=== PATIENT | male | born 1985 | race Caucasian/White ===

== ENCOUNTER 2018-04-16 03:08 | Emergency (ER) | payer OTHER ==
[2018-04-16 03:31] VITALS: BP 121/74; PULSE 114; RESP 18; TEMP 98
[2018-04-16] MEDS ORDERED: CEPHALEXIN 500MG STARTER PACK 4 CAP BTL PO STA (03:43)
[2018-04-16] MEDS ORDERED: SULFAMETH-TMP DS STARTER PACK 2 TAB BTL PO STA (03:43)
--- NOTE | 2018-04-16 03:45 | ED ---
Skin/Abscess/FB HPI - General Chief complaint: Skin/Abscess/Foreign Body Stated complaint: FACIAL SWELLING Time Seen by Provider: 04/16/18 03:36 Source: patient Mode of arrival: ambulatory Limitations: no limitations - History of Present Illness Initial comments: 32-year-old male patient presents to the emergency department today for evaluation of possible infection to his face. Patient does admit to using injectable drugs. He states that he is withdrawing this causes him to break out. Patient states a few the areas seem to be getting infected. States they have been draining pus. States they're painful to touch. He denies any fevers or chills with this. Denies any nausea or vomiting. States he is currently homeless and has no place to go. Patient denies any recent shortness breath, chest pain, abdominal pain, nausea, vomiting, diarrhea, constipation, back pain , numbness, tingling, dizziness, weakness, hematuria, dysuria, urinary urgency, urinary frequency, headache, visual changes, or any other complaints. - Related Data Previous Rx's Medication Instructions Recorded Cephalexin [Keflex] 500 mg PO Q6H #40 cap 04/16/18 Sulfamethoxazole/Trimethoprim 1 each PO BID #20 tablet 04/16/18 [Bactrim DS 800-160 mg] Allergies Allergy/AdvReac Type Severity Reaction Status Date / Time No Known Allergies Allergy Verified 04/16/18 03:44 Review of Systems ROS Statement: Those systems with pertinent positive or pertinent negative responses have been documented in the HPI. ROS Other: All systems not noted in ROS Statement are negative. Past Medical History Past Medical History: Hyperlipidemia, Hypertension History of Any Multi-Drug Resistant Organisms: None Reported Additional Past Surgical History / Comment(s): lasix Past Psychological History: Anxiety, Depression, PTSD Smoking Status: Current every day smoker Past Alcohol Use History: None Reported Past Drug Use History: None Reported General Exam Limitations: no limitations General appearance: alert, in no apparent distress, other (Physical well- developed, well-nourished adult male patient in no acute distress. Vital signs upon presentation are temperature 98.2F, pulse 114, respirations 18, blood pressure 121/74, pulse ox 98% on room air.) Eye exam: Present: normal appearance, PERRL, EOMI. Absent: scleral icterus, conjunctival injection, periorbital swelling Respiratory exam: Present: normal lung sounds bilaterally. Absent: respiratory distress, wheezes, rales, rhonchi, stridor Cardiovascular Exam: Present: regular rate, normal rhythm, normal heart sounds. Absent: systolic murmur, diastolic murmur, rubs, gallop, clicks GI/Abdominal exam: Present: soft, normal bowel sounds. Absent: distended, tenderness, guarding, rebound, rigid Neurological exam: Present: alert, oriented X3, CN II-XII intact Psychiatric exam: Present: normal affect, normal mood, anxious Skin exam: Present: warm, dry, intact, normal color, other (Patient has acne to the face, there are 2-3 lesions to the neck that are swollen, erythematous. They're not fluctuant no evidence of drainable abscess. No current drainage of pus. Minimal surrounding cellulitis.). Absent: rash Course Vital Signs 04/16/18 03:25 Temperature 98.0 F Pulse Rate 114 H Respiratory 18 Rate Blood Pressure 121/74 O2 Sat by Pulse 98 Oximetry Medical Decision Making - Medical Decision Making 32-year-old male patient with past medical history significant for IVDA presents to the emergency department today with complaints of infection to his face. Physical examination did reveal evidence of acne with 3 large lesions to the neck that do appear to have some mild surrounding cellulitis. No fluctuance or evidence of drainable abscess. Patient is afebrile. Is able to tolerate food and fluid intake. He will be started on antibiotics and discharged home. He does have plan for rehab facility placement in the short future. Return parameters were discussed in detail. He is instructed to follow -up with his primary care physician for recheck in 1-2 days. He verbalizes understanding and agrees with this plan. Disposition Clinical Impression: Facial abscess Disposition: HOME SELF-CARE Condition: Good Instructions (If sedation given, give patient instructions): Abscess (ED) Additional Instructions: Apply warm compresses over the lesions. Complete antibiotic prescriptions in full. Return to the emergency department immediately for any new, worsening, or concerning symptoms. Prescriptions: Cephalexin [Keflex] 500 mg PO Q6H #40 cap Sulfamethoxazole/Trimethoprim [Bactrim DS 800-160 mg] 1 each PO BID #20 tablet Is patient prescribed a controlled substance at d/c from ED?: No Referrals: Kristofer Irby DO [Primary Care Provider] - 1-2 days Time of Disposition: 03:45
== END 2018-04-16 04:00 | disposition home or self-care (01) ==
LOC: EEVIPCON 03:08 → EC 03:08
DX: L02.01 Cutaneous abscess of face (principal); L03.211 Cellulitis of face; F17.200 Nicotine dependence, unspecified, uncomplicated; Z59.0 Homelessness
CPT/HCPCS: 99283

== ENCOUNTER 2018-07-15 08:20 | Emergency (ER) | payer OTHER ==
[2018-07-15 08:33] VITALS: BP 135/77; PULSE 103; RESP 18; TEMP 98.3
--- NOTE | 2018-07-15 08:46 | ED ---
Psych HPI - General Chief Complaint: Psychiatric Symptoms Stated Complaint: pickup order Time Seen by Provider: 07/15/18 08:33 Source: patient, RN notes reviewed Mode of arrival: ambulatory Limitations: no limitations - History of Present Illness Initial Comments: This a 32-year-old male presents emergency Department with police for a pickup order. Patient states he is supposed to see [facility]. His been not showing up to his appointments because he states that he was told he was not her receive medications. 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 Patient states that he does not to the [place] at this time. Patient states he is not suicidal or homicidal. Patient does admit that he is very anxious, stressed out and is requesting benzodiazepines. Patient also complains that he has injections on his skin. 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 Patient states she's had no break of areas over the last few days. - Related Data Home Medications Medication Instructions Recorded Confirmed Acetaminophen Tab [Tylenol Tab] 650 mg PO Q4H PRN 07/15/18 07/15/18 Acetaminophen [Tylenol] 500 mg PO BID PRN 07/15/18 07/15/18 Atomoxetine HCl [Strattera] 60 mg PO DAILY 07/15/18 07/15/18 Atorvastatin [Lipitor] 40 mg PO HS 07/15/18 07/15/18 DULoxetine HCL [Cymbalta] 60 mg PO DAILY 07/15/18 07/15/18 Esomeprazole Magnesium [NexIUM] 40 mg PO DAILY 07/15/18 07/15/18 Eszopiclone 3 mg PO HS 07/15/18 07/15/18 Fluticasone Nasal [place] [Flonase 2 spr EA NOSTRIL DAILY 07/15/18 07/15/18 Nasal [place]] Hydrochlorothiazide [Hydrodiuril] 12.5 mg PO DAILY 07/15/18 07/15/18 Ibuprofen [Motrin] 800 mg PO TID PRN 07/15/18 07/15/18 Lidocaine 5% Patch [Lidoderm 5% 1 patch TOPICAL DAILY 07/15/18 07/15/18 Patch] Valproic Acid 500 mg PO TID 07/15/18 07/15/18 buPROPion HCL [Wellbutrin SR] 200 mg PO BID 07/15/18 07/15/18 hydrALAZINE HCL [Apresoline] 50 mg PO TID PRN 07/15/18 07/15/18 traZODone HCL [Desyrel] 100 mg PO HS 07/15/18 07/15/18 Allergies Allergy/AdvReac Type Severity Reaction Status Date / Time melatonin Allergy Rash/Hives Verified 07/15/18 09:29 Review of Systems ROS Statement: Those systems with pertinent positive or pertinent negative responses have been documented in the HPI. ROS Other: All systems not noted in ROS Statement are negative. Past Medical History Past Medical History: Hyperlipidemia, Hypertension History of Any Multi-Drug Resistant Organisms: MRSA Additional Past Surgical History / Comment(s): lasix Past Psychological History: Anxiety, Depression, PTSD Smoking Status: Current every day smoker Past Alcohol Use History: None Reported Past Drug Use History: None Reported General Exam Limitations: no limitations General appearance: alert, in no apparent distress Head exam: Present: atraumatic, normocephalic, normal inspection Eye exam: Present: normal appearance, PERRL, EOMI. Absent: scleral icterus, conjunctival injection, periorbital swelling ENT exam: Present: normal exam, normal oropharynx, mucous membranes moist, TM's normal bilaterally, normal external ear exam Neck exam: Present: normal inspection, full ROM. Absent: tenderness, meningismus, lymphadenopathy Respiratory exam: Present: normal lung sounds bilaterally. Absent: respiratory distress, wheezes, rales, rhonchi, stridor Cardiovascular Exam: Present: regular rate, normal rhythm, normal heart sounds. Absent: systolic murmur, diastolic murmur, rubs, gallop, clicks GI/Abdominal exam: Present: soft, normal bowel sounds. Absent: distended, tenderness, guarding, rebound, rigid Neurological exam: Present: alert, oriented X3, CN II-XII intact, reflexes normal. Absent: motor sensory deficit Psychiatric exam: Present: agitated, anxious Skin exam: Present: warm, dry, intact, normal color, other (Multiple areas of folliculitis and abscesses noted). Absent: rash Course Vital Signs 07/15/18 08:28 Temperature 98.3 F Pulse Rate 103 H Respiratory 18 Rate Blood Pressure 135/77 O2 Sat by Pulse 99 Oximetry Medical Decision Making - Medical Decision Making Patient became very vigilant, aggressive and loud yelling at staff. Patient ran out of his room through staff who unable to stop the patient. Patient eloped from the hospital at this time police were contacted. Disposition Clinical Impression: Drug abuse, PTSD (post-traumatic stress disorder), Ivett (monopolar) single episode or unspecified Disposition: Left Against Medical Advice Referrals: Kristofer Irby DO [Primary Care Provider] - 1-2 days
[2018-07-15] MEDS ORDERED: LORazepam 1 MG TAB PO STA (11:16)
[2018-07-15] MEDS ORDERED: DIAZEPAM 5 MG TAB PO STA ×2 (12:00→13:41)
[2018-07-15] MEDS ORDERED: LORazepam 2 MG/ML INJ IM STA (13:50)
[2018-07-15] MEDS ORDERED: ZIPRASIDONE 20 MG VIAL IM STA (13:50)
== END 2018-07-15 14:00 | disposition left against medical advice (07) ==
LOC: EC 08:20
DX: F43.10 Post-traumatic stress disorder, unspecified (principal); F19.10 Other psychoactive substance abuse, uncomplicated; F32.9 Major depressive disorder, single episode, unspecified; R45.1 Restlessness and agitation; L73.9 Follicular disorder, unspecified; L02.91 Cutaneous abscess, unspecified; F41.9 Anxiety disorder, unspecified; E78.5 Hyperlipidemia, unspecified; I10 Essential (primary) hypertension; F17.200 Nicotine dependence, unspecified, uncomplicated; Z88.8 Allergy status to other drugs, medicaments and biological substances; Z79.51 Long term (current) use of inhaled steroids; Z79.899 Other long term (current) drug therapy; Z86.14 Personal history of Methicillin resistant Staphylococcus aureus infection
CPT/HCPCS: 82075; 99284

== ENCOUNTER 2018-07-15 19:21 | Inpatient (IN) | payer OTHER ==
[2018-07-15] MEDS ORDERED: LORazepam 2 MG/ML INJ IM STA (19:25)
--- NOTE | 2018-07-15 19:33 | ED ---
General Adult HPI <Mora Mckeon P - Last Filed: 07/16/18 04:38> - General Source: patient, police, RN notes reviewed, old records reviewed <Isma Scott - Last Filed: 07/16/18 18:25> - General Stated complaint: Mental Health Time Seen by Provider: 07/15/18 19:25 - History of Present Illness Initial comments: 32-year-old male presents for psychiatric evaluation. Patient was seen in the emergency department earlier today. He did elope and ER staff was unable to restrain the patient. Police were contacted and have been looking for the patient since the time he left the emergency department. He was found by police and brought in for further evaluation. Patient had "ordered psychiatric evaluation and admission. He is aggressive and required both chemical and physical restraints. Patient has no physical complaints no chest pain or dyspnea. No fever or chills. No abdominal pain nausea vomiting. He states he is hungry. (Isma Scott) - Related Data Home Medications Medication Instructions Recorded Confirmed Acetaminophen Tab [Tylenol Tab] 650 mg PO Q4H PRN 07/15/18 07/15/18 Acetaminophen [Tylenol] 500 mg PO BID PRN 07/15/18 07/15/18 Atomoxetine HCl [Strattera] 60 mg PO DAILY 07/15/18 07/15/18 Atorvastatin [Lipitor] 40 mg PO HS 07/15/18 07/15/18 DULoxetine HCL [Cymbalta] 60 mg PO DAILY 07/15/18 07/15/18 Esomeprazole Magnesium [NexIUM] 40 mg PO DAILY 07/15/18 07/15/18 Eszopiclone 3 mg PO HS 07/15/18 07/15/18 Fluticasone Nasal [place] [Flonase 2 spr EA NOSTRIL DAILY 07/15/18 07/15/18 Nasal [place]] Hydrochlorothiazide [Hydrodiuril] 12.5 mg PO DAILY 07/15/18 07/15/18 Ibuprofen [Motrin] 800 mg PO TID PRN 07/15/18 07/15/18 Lidocaine 5% Patch [Lidoderm 5% 1 patch TRANSDERM DAILY 07/15/18 07/15/18 Patch] Valproic Acid 500 mg PO TID 07/15/18 07/15/18 buPROPion HCL [Wellbutrin SR] 200 mg PO BID 07/15/18 07/15/18 hydrALAZINE HCL [Apresoline] 50 mg PO TID PRN 07/15/18 07/15/18 traZODone HCL [Desyrel] 100 mg PO HS 07/15/18 07/15/18 Allergies Allergy/AdvReac Type Severity Reaction Status Date / Time lorazepam [From Ativan] Allergy Severe Hallucinati Verified 07/16/18 07:28 ons melatonin Allergy Rash/Hives Verified 07/16/18 07:28 Review of Systems ROS Other: All systems not noted in ROS Statement are negative. <Mora Mckeon P - Last Filed: 07/16/18 04:38> ROS Other: All systems not noted in ROS Statement are negative. <Isma Scott - Last Filed: 07/16/18 18:25> ROS Statement: Those systems with pertinent positive or pertinent negative responses have been documented in the HPI. Past Medical History Past Medical History: Hyperlipidemia, Hypertension History of Any Multi-Drug Resistant Organisms: MRSA Additional Past Surgical History / Comment(s): lasix Past Psychological History: Anxiety, Depression, PTSD Smoking Status: Current every day smoker Past Alcohol Use History: None Reported Past Drug Use History: None Reported <Isma Scott - Last Filed: 07/16/18 18:25> General Exam General appearance: alert, anxious Head exam: Present: atraumatic, normocephalic Eye exam: Present: normal appearance ENT exam: Present: normal exam Neck exam: Present: normal inspection. Absent: tenderness Respiratory exam: Present: normal lung sounds bilaterally. Absent: respiratory distress, wheezes Cardiovascular Exam: Present: regular rate, normal rhythm GI/Abdominal exam: Present: soft. Absent: distended, tenderness, guarding Extremities exam: Present: normal inspection, normal capillary refill. Absent: pedal edema Neurological exam: Present: alert Psychiatric exam: Present: agitated, anxious Skin exam: Present: warm, dry, intact. Absent: cyanosis, diaphoretic <Isma Scott - Last Filed: 07/16/18 18:25> Course <Isma Scott - Last Filed: 07/16/18 18:25> Vital Signs 07/15/18 07/15/18 07/15/18 19:28 21:40 22:45 Temperature 99.7 F H Pulse Rate 98 Pulse Rate [ Left Supine] Respiratory 19 18 18 Rate Blood Pressure 128/75 Blood Pressure [Left Arm Supine] O2 Sat by Pulse 99 Oximetry 07/16/18 07/16/18 07/16/18 00:17 01:40 02:32 Temperature Pulse Rate Pulse Rate [ Left Supine] Respiratory 18 17 16 Rate Blood Pressure Blood Pressure [Left Arm Supine] O2 Sat by Pulse Oximetry 07/16/18 07/16/18 07/16/18 03:02 04:02 04:47 Temperature Pulse Rate Pulse Rate [ Left Supine] Respiratory 15 17 18 Rate Blood Pressure Blood Pressure [Left Arm Supine] O2 Sat by Pulse Oximetry 07/16/18 07/16/18 05:31 05:50 Temperature 98.1 F Pulse Rate Pulse Rate [ 89 Left Supine] Respiratory 18 19 Rate Blood Pressure Blood Pressure 134/65 [Left Arm Supine] O2 Sat by Pulse Oximetry - Reevaluation(s) Reevaluation #1: 07/15/18 19:33 Patient medically cleared awaiting reevaluation by EPS. (Isma Scott) Procedures - Restraint - Face to Face Restraint Occurrence 1 Patient's Immediate Situation: Endangers self safety, Endangers others' safety, Endangers staff safety, Violent behavior Patient's Reaction to the Intervention: Appropriate, Calm, Relaxed Patient's Medical & Behavioral Condition: Awake, Alert, Follows directions Face to Face Eval of Restraint Date: 07/15/18 Face to Face Eval of Restraint Time: 19:25 <Isma Scott - Last Filed: 07/16/18 18:25> Medical Decision Making <Mora Mckeon - Last Filed: 07/16/18 04:38> - Lab Data Result diagrams: 07/16/18 10:47 07/16/18 10:47 <Isma Scott - Last Filed: 07/16/18 18:25> - Medical Decision Making Patient remained in the emergency department overnight. Patient had episodes of becoming agitated but was able to be ED escalated. Patient adamantly refusing to provide urine sample her giving blood. Patient care was discussed with EPS multiple times, they repeatedly requested blood however decided that if the patient was appropriately medicated and calm they would accept him to the floor and would obtained blood her urine samples later. Dr. Peña requesting patient be medicated with Thorazine and Benadryl prior to transfer to the floor. Orders were laced. (Mora Mckeon) Patient is evaluated by EPS awaiting urine drug screen. Patient will likely be admitted to this institution. (Isma Scott) Disposition <Mora Mckeon - Last Filed: 07/16/18 04:38> Is patient prescribed a controlled substance at d/c from ED?: No Decision to Admit Reason: Admit from EC Decision Date: 07/15/18 Decision Time: 20:32 <Isma Scott - Last Filed: 07/16/18 18:25> Clinical Impression: PTSD (post-traumatic stress disorder), Ivett (monopolar) single episode or unspecified, Psychosis Disposition: ADMITTED IP TO THIS [facility] Condition: Stable
[2018-07-15] MEDS ORDERED: DIAZEPAM 5 MG TAB PO STA (19:46)
[2018-07-15] MEDS ORDERED: NICOTINE 21MG/24HR PATCH TRANSDERM STA (19:47)
[2018-07-16] MEDS ORDERED: ALPRAZolam 1 MG TAB PO STA (00:27)
[2018-07-16] MEDS ORDERED: ACETAMINOPHEN TAB 325 MG TAB PO PRN ×2 (00:27→06:52)
[2018-07-16] MEDS: VALPROIC ACID ORAL SOLN 250 MG/5 ML CUP PO SCH ×4 (01:01→22:49)
[2018-07-16] MEDS: diphenhydrAMINE 50 MG/ML 1 ML VIAL IM STA ×2 (05:01→15:00)
[2018-07-16] MEDS: chlorproMAZINE 25 MG/ML 2 ML AMP IM STA ×2 (05:02→15:00)
[2018-07-16] MEDS ORDERED: MAG HYDROX/AL HYDROX/SIMETH 30 ML CUP PO PRN (06:52)
[2018-07-16] MEDS ORDERED: MAGNESIUM HYDROXIDE 2,400 MG/10 ML CUP PO PRN (06:52)
[2018-07-16] MEDS ORDERED: ZIPRASIDONE 20 MG VIAL IM PRN (06:52)
[2018-07-16] MEDS ORDERED: diphenhydrAMINE 50 MG/ML 1 ML VIAL IM PRN (07:29)
[2018-07-16] MEDS ORDERED: chlorproMAZINE 25 MG/ML 2 ML AMP IM PRN (07:29)
[2018-07-16] MEDS: NICOTINE 21MG/24HR PATCH TRANSDERM SCH (08:15)
--- NOTE | 2018-07-16 11:21 | P.HP ---
Psychiatric H&P - . History & Physical: Allergies Allergy/AdvReac Type Severity Reaction Status Date / Time lorazepam [From Ativan] Allergy Severe Hallucinati Verified 07/16/18 07:28 ons melatonin Allergy Rash/Hives Verified 07/16/18 07:28 Vital Signs Temp 98.1 F 07/16/18 05:31 Pulse 89 07/16/18 05:31 Resp 19 07/16/18 05:50 BP 134/65 07/16/18 05:31 Pulse Ox 99 07/15/18 19:28 Intake & Output 07/15/18 07/16/18 07/16/18 18:59 06:59 18:59 Weight 90.718 kg 07/16/18 11:11 IDENTIFYING DATA: This patient is a 32-year-old male who was admitted to the mental health unit on a pickup order for noncompliance with treatment. HPI: The patient was admitted to the mental health unit for noncompliance. The patient is a partial historian as he is lethargic this morning. I was informed that he is on a court order for substance use treatment as well as mental health treatment. He was most recently hospitalized at the [place] for approximately one month and was released on June 14. He states that he does not know why he is here. He reports no suicidal or homicidal thoughts. He states he was just brought by the police. He endorses a history of depression and anxiety and PTSD symptoms related to his service. He states that he will experience flashbacks and nightmares on a random basis related to his [facility]. Again the patient was quite lethargic this morning and fell asleep numerous times during our interaction. PAST PSYCHIATRIC HISTORY: He stated he has had more than 6 inpatient psychiatric hospitalizations the last is noted above. No history of suicide attempts. He states that he has been prescribed Cymbalta 60 mg daily Wellbutrin SR 200 mg twice daily Depakote 500 mg 3 times daily and Strattera 60 mg daily trazodone 100 mg at bedtime. He states the trazodone is ineffective as well as the Strat alexus. It appears that he has been open with [facility] in the past and they're most recent note was August 2017. Apparently there was an attempt for him to be seen at their [place] office on June 25. It appears in the past he had also been prescribed Seroquel and Catapres. PMH: Unknown, he states that he has unspecified back pain. He states he may have an abscess on his back. He states he has significant hearing loss from his service. ALLERGIES: Ativan, melatonin MEDICATIONS: As above CHEMICAL DEPENDENCY HISTORY: He reports infrequent use of alcohol and none since last September, no use of marijuana, he reports no use of cocaine, in terms of heroin and methamphetamine he states "I'm not going to indict myself". It is unclear if he has been in inpatient chemical dependency treatment in the past. 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 He has no full-time employment but will do levi jobs. He will not describe what these jobs are. He states he has 3 children but does not have custody of them. He states that he has a new girlfriend as of 10 days ago. He is a high school graduate and took some college classes afterwards. He has 11 years of service specifically [employer]. 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 He states that he was honorably discharged. Legal history unknown abuse history unknown MENTAL STATUS EXAM: The patient is a lethargic male appearing his s tated age. He is verbally arousable but very often falls back to sleep. He indicates his mood is fine he states he has no suicidal or homicidal thoughts and states "I'm a good person". He is endorsing no auditory or visual hallucinations he endorses no specific delusions. He is dressed in hospital attire. He has numerous excoriations lesions on his hands and upper extremities some on his face. He states these are self-induced from yesterday. His left arm is covered in a sleeve type tattoo. He demonstrates no verbal or physical aggressiveness but he does frequently move while laying on the bed. Speech is fluent nonpressured. He has difficulty attending to the conversation often repeating himself and not retaining information we discussed earlier in our session. He demonstrates no involuntary repetitive movements. He is oriented to person place but not date. No further cognitive testing couldn't be performed due to his lethargy. STRENGTHS/WEAKNESSES: Strengths: Housing weaknesses: Suspected substance use INTELLECTUAL FUNCTIONING: Average IMPRESSIONS: [] 1. Depression unspecified, PTSD, rule out methamphetamine and opiate use disorders PLAN: The patient has been admitted to the mental health unit involuntarily on an existing treatment order. Due to his lethargy a complete evaluation could not be performed. Based on the information we have I will continue him on the Depakote 500 mg 3 times daily we have Geodon available as needed for agitation. It's possible he may have a bipolar disorder. We will hold the Cymbalta and Wellbutrin for now. Blood work was drawn we will await results. He will be seen by internal medicine for routine history and physical exam. We will monitor him for safety and encourage appropriate participation in the milieu. We will involve family in treatment and discharge planning as he will allow.
[2018-07-16 11:39] LABS: ALT 30 U/L (21-72); AST 32 U/L (17-59); Albumin 3.9 g/dL (3.5-5.0); Alkaline Phosphatase 66 U/L (38-126); Anion Gap 9 mmol/L; Bilirubin, Delta 0.1 mg/dL (0.0-0.2); Bilirubin,Unconjugated 0.3 mg/dL (0.0-1.1); Blood Urea Nitrogen 16 mg/dL (9-20); Calcium 9.6 mg/dL (8.4-10.2); Carbon Dioxide 29 mmol/L (22-30); Chloride 104 mmol/L (98-107); Cholesterol 132 mg/dL (<200); Glucose 77 mg/dL (74-99); HDL Cholesterol 30 mg/dL (40-60); LDL Cholesterol,Calculated 70 mg/dL (0-99); Potassium 4.3 mmol/L (3.5-5.1); Sodium 142 mmol/L (137-145); Total Bilirubin 0.4 mg/dL (0.2-1.3); Total Protein 6.9 g/dL (6.3-8.2); Triglycerides 159 mg/dL (<150)
[2018-07-16 11:45] LABS: Basophils # (A) 0.1 k/uL (0-0.2); Basophils % (A) 1 %; Eosinophils # (A) 0.2 k/uL (0-0.7); Eosinophils % (A) 4 %; HCT 43.4 % (39.0-53.0); HGB 14.3 gm/dL (13.0-17.5); Lymphocytes # (A) 1.9 k/uL (1.0-4.8); Lymphocytes % (A) 49 %; MCV 84.8 fL (80.0-100.0); Mean Platelet Volume 6.6; Monocytes # (A) 0.4 k/uL (0-1.0); Monocytes % (A) 9 %; Neutrophils # (A) 1.3 k/uL (1.3-7.7); Neutrophils % (A) 33 %; Platelet Count 238 k/uL (150-450); RBC 5.12 m/uL (4.30-5.90); RDW 13.9 % (11.5-15.5); Valproic Acid (Depakene) 49.3 ug/mL; WBC 3.8 k/uL (3.8-10.6)
[2018-07-16] MEDS: ALPRAZolam 1 MG TAB PO PRN (16:50)
--- NOTE | 2018-07-16 17:12 | P.CONS ---
History of Present Illness - Reason for Consult Consult date: 07/16/18 - History of Present Illness Patient is a 32-year-old male with a past medical history of PTSD, hypertension, hyperlipidemia, depression, anxiety, smoker, and polysubstance abuse who was admitted to the hospital for noncompliance to therapy. The patient was recently admitted at the [facility] for approximately one month and was released on 06/14/2018. History was difficult to obtain as patient was letharg ic. He notes that he has high blood pressure though does not recall the medication that he is on. He also endorsed a history of polysubstance abuse though does not wish to give the details. Review of Systems Pertinent positives and negatives as discussed in HPI, a complete review of systems was performed and all other systems are negative. Past Medical History Past Medical History: Hyperlipidemia, Hypertension History of Any Multi-Drug Resistant Organisms: MRSA Additional Past Surgical History / Comment(s): lasix Past Psychological History: Anxiety, Depression, PTSD Smoking Status: Current every day smoker Past Alcohol Use History: None Reported Past Drug Use History: None Reported Medications and Allergies Home Medications Medication Instructions Recorded Confirmed Type Acetaminophen Tab [Tylenol Tab] 650 mg PO Q4H PRN 07/15/18 07/15/18 History Acetaminophen [Tylenol] 500 mg PO BID PRN 07/15/18 07/15/18 History Atomoxetine HCl [Strattera] 60 mg PO DAILY 07/15/18 07/15/18 History Atorvastatin [Lipitor] 40 mg PO HS 07/15/18 07/15/18 History DULoxetine HCL [Cymbalta] 60 mg PO DAILY 07/15/18 07/15/18 History Esomeprazole Magnesium [NexIUM] 40 mg PO DAILY 07/15/18 07/15/18 History Eszopiclone 3 mg PO HS 07/15/18 07/15/18 History Fluticasone Nasal [place] [Flonase 2 spr EA NOSTRIL DAILY 07/15/18 07/15/18 History Nasal [place]] Hydrochlorothiazide [Hydrodiuril] 12.5 mg PO DAILY 07/15/18 07/15/18 History Ibuprofen [Motrin] 800 mg PO TID PRN 07/15/18 07/15/18 History Lidocaine 5% Patch [Lidoderm 5% 1 patch TRANSDERM DAILY 07/15/18 07/15/18 History Patch] Valproic Acid 500 mg PO TID 07/15/18 07/15/18 History buPROPion HCL [Wellbutrin SR] 200 mg PO BID 07/15/18 07/15/18 History hydrALAZINE HCL [Apresoline] 50 mg PO TID PRN 07/15/18 07/15/18 History traZODone HCL [Desyrel] 100 mg PO HS 07/15/18 07/15/18 History Allergies Allergy/AdvReac Type Severity Reaction Status Date / Time lorazepam [From Ativan] Allergy Severe Hallucinati Verified 07/16/18 07:28 ons melatonin Allergy Rash/Hives Verified 07/16/18 07:28 Physical Exam Vitals: Vital Signs Temp Pulse Pulse Resp BP BP Pulse Ox 07/16/18 15:38 87 18 125/68 07/16/18 05:50 19 07/16/18 05:31 98.1 F 89 18 134/65 07/16/18 04:47 18 07/16/18 04:02 17 07/16/18 03:02 15 07/16/18 02:32 16 07/16/18 01:40 17 07/16/18 00:17 18 07/15/18 22:45 18 07/15/18 21:40 18 07/15/18 19:28 99.7 F H 98 19 128/75 99 General: Non-toxic, in no acute distress, appears stated age, normal weight HEENT: NC/AT, anicteric sclerae, moist conjunctiva, no lid-lag, PERRLA Cardiovascular: S1/S2 wnl, no murmurs, rubs, or gallops Lungs: Clear to auscultation, normal respiratory effort, no accessory muscle use Abdominal: Soft, non-tender, non-distended, no guarding, rebound, or rigidity Skin: Warm, dry, excoriations with 1-2 cm lesions throughout, 3-4 cm circular ulcer on back with palpable collection, tenderness palpation, and an erythematous base Extremities: No edema or contractures Psychiatric: Alert and oriented to person, place and time, lethargic Neuro: Moving all extremities grossly, sensation grossly intact throughout Results CBC & Chem 7: 07/16/18 10:47 07/16/18 10:47 Labs: Abnormal Lab Results - Last 24 Hours (Table) 07/16/18 Range/Units 10:47 Triglycerides 159 H (<150) mg/dL HDL Cholesterol 30 L (40-60) mg/dL Assessment and Plan Plan: Depression, PTSD, anxiety -As per psychiatry Multiple lesions, possibly due to the methamphetamine abuse -Supportive measures -Topical ointments for now Ulcer on back, with palpable collection -Surgery consult Hypertension -Resume home medication Thank you for allowing us to participate in the care of this patient. We will follow peripherally. Do not hesitate to contact us with questions. Someone can be reached from the [facility] hospitalist group at all hours of the day at [phone].
[2018-07-16] MEDS: PANTOPRAZOLE 40 MG TABLET PO SCH (17:26)
[2018-07-16] MEDS: AMOXIC-POT CLAV 875-125MG 1 EACH TAB PO SCH (17:38)
[2018-07-16 18:27] LABS: Hemoglobin A1C 4.9 % (4.0-6.0)
[2018-07-16] MEDS ORDERED: HALOPERIDOL LACTATE 5 MG/ML 1 ML VIAL ONE (18:55)
[2018-07-16] MEDS: HALOPERIDOL LACTATE 5 MG/ML 1 ML VIAL IM STA ×2 (18:57→19:56)
[2018-07-16] MEDS: DIAZEPAM 5 MG TAB PO STA ×2 (18:57→20:32)
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
[2018-07-16] MEDS ORDERED: DIAZEPAM 5 MG/ML (10 ML MDV) IM ONE (21:24)
[2018-07-16] MEDS: ATORVASTATIN 40 MG TAB PO SCH (22:49)
[2018-07-17] MEDS: AMOXIC-POT CLAV 875-125MG 1 EACH TAB PO SCH ×2 (09:06→21:00)
[2018-07-17] MEDS: HYDROCHLOROTHIAZIDE 12.5 MG CAP PO SCH (09:07)
[2018-07-17] MEDS: NICOTINE 21MG/24HR PATCH TRANSDERM SCH (09:07)
[2018-07-17] MEDS: PANTOPRAZOLE 40 MG TABLET PO SCH (09:07)
[2018-07-17] MEDS: VALPROIC ACID ORAL SOLN 250 MG/5 ML CUP PO SCH ×3 (09:07→21:00)
--- NOTE | 2018-07-17 12:46 | P.GSCN ---
History of Present Illness Consult date: 07/17/18 History of present illness: CHIEF COMPLAINT: MRSA of the back HISTORY OF PRESENT ILLNESS: The patient is a 32 year old male with history of multiple skin abscesses. He has history of MRSA infection. No reports of fevers or chills. No reports of actively draining abscess. He presents with multiple scars along the back which is recurrent. He has a lesion on his back questionable for abscess, hence general surgery consultation. PAST MEDICAL HISTORY: See list. PAST SURGICAL HISTORY: See list. MEDICATIONS: See list. ALLERGIES: See list. SOCIAL HISTORY: See list. FAMILY HISTORY: No reports of Crohn's disease or inflammatory bowel disease REVIEW OF ORGAN SYSTEMS: CONSTITUTIONAL: No fevers or chills. No recent weight loss. EYES: Denies any trouble with vision. No glasses. HEENT: No difficulties with hearing. No nosebleeds. No difficulty swallowing. RESPIRATORY: Denies pneumonia. Denies any troubles with breathing or dyspnea on exertion. CARDIOVASCULAR: Denies any chest pain, palpitations, or recent heart attacks. Has hypertension. GASTROINTESTINAL: Denies fatty food intolerance. Denies change in bowel habits and gas bloat. Has GERD. GENITOURINARY: Denies any blood in urine or increased urinary frequency. NEUROLOGICAL: Denies any numbness or tingling along the distal extremities. No seizure disorders or headaches. MUSCULOSKELETAL: Denies any back pain, stiffness or joint arthritis. SKIN: No current skin cancer. No rash. PSYCHIATRIC: Has depression. Has posttraumatic stress disorder. Has anxiety. ENDOCRINE: Denies current thyroid disorders. Denies any blood sugar glucose intolerance. HEME/LYMPHATIC: Denies any lumps and bumps around the neck. No recent deep venous thrombosis. ALLERGY/IMMUNOLOGY: No immunoglobulin therapy. No immune deficiencies. BREAST: Denies current breast lumps, pain or nipple discharge. PHYSICAL EXAM: VITALS: Reviewed CONSTITUTIONAL: Well developed and in no acute distress. EYES: Conjuctivae without sclera icterus. Pupils are equally round and reactive to light. Extraocular movements grossly intact. HEAD, EARS, NOSE, THROAT: Moist buccal mucosa. Head is atraumatic, normocephali c. Hears conversational speech. No nasal drainage. NECK: Supple. No JV distention. No thyroidomegaly. RESPIRATORY: Non-labored respirations and equal bilateral excursions. No gross wheezes. CARDIOVASCULAR: Regular rate and rhythm. Extremities without moderate edema. Palpable 2+ radial pulses. ABDOMEN: No hepatomegaly. Soft. Non-tender. Nondistended. LYMPH: No neck lymphadenopathy. MUSCULOSKELETAL: Nail and fingers with good capillary refill. SKIN: Warm and well perfused. Skin lesion along the back 1-cm without active drainage. Multiple papules and acne along the back NEUROLOGIC: Cranial nerves I through XII grossly intact. No focal or lateralizing signs. PSYCH: Flat affect. Alert and oriented to person, place and time. CLINCAL LABS: Reviewed within normal limits ASSESSMENT: 1. Past history of MRSA infection 2. Skin superficial papules with acne PLAN: 1. No surgical intervention. 2. For history of MRSA infection, recommend bactrim Thank you for this kind consultation. Past Medical History Past Medical History: Hyperlipidemia, Hypertension History of Any Multi-Drug Resistant Organisms: MRSA Additional Past Surgical History / Comment(s): lasix Past Psychological History: Anxiety, Depression, PTSD Smoking Status: Current every day smoker Past Alcohol Use History: None Reported Past Drug Use History: None Reported Medications and Allergies Home Medications Medication Instructions Recorded Confirmed Type Acetaminophen Tab [Tylenol Tab] 650 mg PO Q4H PRN 07/15/18 07/17/18 History Acetaminophen [Tylenol] 500 mg PO BID PRN 07/15/18 07/17/18 History Atomoxetine HCl [Strattera] 60 mg PO DAILY 07/15/18 07/17/18 History Atorvastatin [Lipitor] 40 mg PO HS 07/15/18 07/17/18 History DULoxetine HCL [Cymbalta] 60 mg PO DAILY 07/15/18 07/17/18 History Esomeprazole Magnesium [NexIUM] 40 mg PO DAILY 07/15/18 07/17/18 History Eszopiclone 3 mg PO HS 07/15/18 07/17/18 History Fluticasone Nasal [place] [Flonase 2 spr EA NOSTRIL DAILY 07/15/18 07/17/18 History Nasal [place]] Hydrochlorothiazide [Hydrodiuril] 12.5 mg PO DAILY 07/15/18 07/17/18 History Ibuprofen [Motrin] 800 mg PO TID PRN 07/15/18 07/17/18 History Lidocaine 5% Patch [Lidoderm 5% 1 patch TRANSDERM DAILY 07/15/18 07/17/18 History Patch] Valproic Acid 500 mg PO TID 07/15/18 07/17/18 History buPROPion HCL [Wellbutrin SR] 200 mg PO BID 07/15/18 07/17/18 History hydrALAZINE HCL [Apresoline] 50 mg PO TID PRN 07/15/18 07/17/18 History traZODone HCL [Desyrel] 100 mg PO HS 07/15/18 07/17/18 History Allergies Allergy/AdvReac Type Severity Reaction Status Date / Time lorazepam [From Ativan] Allergy Severe Hallucinati Verified 07/17/18 03:07 ons melatonin Allergy Rash/Hives Verified 07/17/18 03:07 Surgical - Exam Vital Signs Temp Pulse Resp BP Pulse Ox 99.7 F H 98 19 128/75 99 07/15/18 19:28 07/15/18 19:28 07/15/18 19:28 07/15/18 19:28 07/15/18 19:28 Results - Labs 07/16/18 10:47 07/16/18 10:47 Diabetes panel 07/16/18 Range/Units 10:47 Hemoglobin A1c 4.9 (4.0-6.0) % Assessment and Plan (1) MRSA (methicillin resistant Staphylococcus aureus) carrier Current Visit: Yes Status: Acute Code(s): Z22.322 - CARRIER OR SUSPECTED CARRIER OF METHICILLIN RESIS STAPH SNOMED Code(s): 962086596 (2) Acne Current Visit: Yes Status: Acute Code(s): L70.9 - ACNE, UNSPECIFIED SNOMED Code(s): 05830526 (3) [place] (monopolar) single episode or unspecified Current Visit: Yes Status: Acute Code(s): F30.9 - MANIC EPISODE, UNSPECIFIED SNOMED Code(s): 892858853 (4) PTSD (post-traumatic stress disorder) Current Visit: Yes Status: Acute Code(s): F43.10 - POST-TRAUMATIC STRESS DISORDER, UNSPECIFIED SNOMED Code(s): 59089046
[2018-07-17] MEDS: ALPRAZolam 1 MG TAB PO PRN (15:09)
[2018-07-17 15:57] VITALS: RESP 16
--- NOTE | 2018-07-17 18:02 | P.PN ---
Subjective Progress Note Date: 07/17/18 Principal diagnosis: PTSD, Meth Abuse Found him in his room. Laying in his bed. yesterday he was very agitated, verbally and physically aggressive. He was violent. He is place on 1:1 for unpreditable behavior. Now some what calmer after receiving IM valium . He still dela cruz not want to go to [place] [facility]. He wants to go home. MSE: Alert, awake, oriented in all spheres. Poor eye contact. Some what guarded approach. Mood angry with flat affect. Has suicidal ideation. Has psychoses. Insight and judgment limited A/P : PTSD Will continue to adjust medications accordingly Objective - Vital Signs Vital signs: Vital Signs Temp 98.4 F 07/17/18 15:57 Pulse 84 07/17/18 15:57 Resp 16 07/17/18 15:57 BP 109/59 07/17/18 15:57 Pulse Ox 99 07/15/18 19:28 - Labs CBC & Chem 7: 07/16/18 10:47 07/16/18 10:47
[2018-07-17] MEDS: BENZTROPINE MESYLATE 1 MG TAB PO SCH (19:21)
[2018-07-17] MEDS: ATORVASTATIN 40 MG TAB PO SCH (21:00)
[2018-07-18] MEDS: PANTOPRAZOLE 40 MG TABLET PO SCH (08:31)
[2018-07-18] MEDS: BENZTROPINE MESYLATE 1 MG TAB PO SCH ×2 (08:32→20:40)
[2018-07-18] MEDS: VALPROIC ACID ORAL SOLN 250 MG/5 ML CUP PO SCH ×3 (08:32→20:40)
[2018-07-18] MEDS: NICOTINE 21MG/24HR PATCH TRANSDERM SCH (08:32)
[2018-07-18] MEDS: AMOXIC-POT CLAV 875-125MG 1 EACH TAB PO SCH ×2 (08:32→20:40)
[2018-07-18] MEDS: HYDROCHLOROTHIAZIDE 12.5 MG CAP PO SCH (08:34)
--- NOTE | 2018-07-18 11:16 | P.PN ---
Subjective Progress Note Date: 07/18/18 CHIEF COMPLAINT: Carbuncle along the back HISTORY OF PRESENT ILLNESS: The patient is a 32 year old male with history of multiple skin abscesses. He has history of MRSA infection. He denies any current complaints. No reports of pain along the back lesions. He is currently on antibiotics ROS: No chest pain. No fevers or chills. PHYSICAL EXAM: VITALS: Reviewed CONSTITUTIONAL: Well developed and in no acute distress. EYES: Conjuctivae without sclera icterus. Extraocular movements grossly int act. HEAD, EARS, NOSE, THROAT: Moist buccal mucosa. Head is atraumatic, normocephalic. Hears conversational speech. No nasal drainage. RESPIRATORY: Non-labored respirations and equal bilateral excursions. No gross wheezes. CARDIOVASCULAR: Regular rate and rhythm. ABDOMEN: No peritonitis. No tenderness. MUSCULOSKELETAL: No clubbing cyanosis up her extremity. SKIN: Warm and well perfused. NEUROLOGIC: Cranial nerves I through XII grossly intact. No focal or lateralizing signs. PSYCH: Flat affect. Alert and oriented to person, place and time. CLINCAL LABS: No new labs ASSESSMENT: 1. Past history of MRSA infection 2. Skin superficial papules with acne and carbuncle PLAN: 1. Continue with oral antibiotics. May benefit from Bactrim for history of MRSA 2. No surgical intervention 3. Please reconsult if needed Objective - Vital Signs Vital signs: Vital Signs Temp 98.4 F 07/17/18 15:57 Pulse 84 07/17/18 15:57 Resp 16 07/17/18 15:57 BP 109/59 07/17/18 15:57 Pulse Ox 99 07/15/18 19:28 - Labs CBC & Chem 7: 07/16/18 10:47 07/16/18 10:47 Assessment and Plan (1) MRSA (methicillin resistant Staphylococcus aureus) carrier Current Visit: Yes Status: Acute Code(s): Z22.322 - CARRIER OR SUSPECTED CARRIER OF METHICILLIN RESIS STAPH SNOMED Code(s): 982946184 (2) Acne Current Visit: Yes Status: Acute Code(s): L70.9 - ACNE, UNSPECIFIED SNOMED Code(s): 94073871 (3) [place] (monopolar) single episode or unspecified Current Visit: Yes Status: Acute Code(s): F30.9 - MANIC EPISODE, UNSPECIFIED SNOMED Code(s): 858097098 (4) PTSD (post-traumatic stress disorder) Current Visit: Yes Status: Acute Code(s): F43.10 - POST-TRAUMATIC STRESS DISORDER, UNSPECIFIED SNOMED Code(s): 34913640 (5) Carbuncle and furuncle of trunk Current Visit: Yes Status: Acute Code(s): L02.229 - FURUNCLE OF TRUNK, UNSPECIFIED SNOMED Code(s): 10143241
--- NOTE | 2018-07-18 14:23 | P.PN ---
Subjective Progress Note Date: 07/18/18 Principal diagnosis: PTSD, Meth Abuse Found him in his room. Laying in his bed. Found him calm and behaviorally well controlled. He wants to be discharged home and does not want to go to [facility]. He is on 1:1 for unpredictable behavior. MSE: Alert, awake, oriented in all spheres. Poor eye contact. Some what guarded approach. Mood angry with flat affect. Has suicidal ideation. Has psychoses. Insight and judgment limited A/P : PTSD Will continue to adjust medications accordingly Objective - Vital Signs Vital signs: Vital Signs Temp 98.4 F 07/17/18 15:57 Pulse 84 07/17/18 15:57 Resp 16 07/17/18 15:57 BP 109/59 07/17/18 15:57 Pulse Ox 99 07/15/18 19:28 Intake & Output 07/17/18 07/18/18 07/18/18 18:59 06:59 18:59 Weight 91 kg - Labs CBC & Chem 7: 07/16/18 10:47 07/16/18 10:47
[2018-07-18] MEDS: ALPRAZolam 1 MG TAB PO PRN (17:19)
[2018-07-18] MEDS: ATORVASTATIN 40 MG TAB PO SCH (20:40)
[2018-07-19] MEDS: BENZTROPINE MESYLATE 1 MG TAB PO SCH ×2 (08:19→22:47)
[2018-07-19] MEDS: NICOTINE 21MG/24HR PATCH TRANSDERM SCH (08:19)
[2018-07-19] MEDS: HYDROCHLOROTHIAZIDE 12.5 MG CAP PO SCH (08:19)
[2018-07-19] MEDS: PANTOPRAZOLE 40 MG TABLET PO SCH (08:19)
[2018-07-19] MEDS: AMOXIC-POT CLAV 875-125MG 1 EACH TAB PO SCH ×2 (08:19→22:47)
[2018-07-19] MEDS: VALPROIC ACID ORAL SOLN 250 MG/5 ML CUP PO SCH ×3 (08:20→22:46)
[2018-07-19 09:34] LABS: Serum Amphetamine Negative; Serum Barbiturates Negative; Serum Benzodiazepine Positive; Serum Cocaine Negative; Serum Methadone Negative; Serum Opiates Negative; Serum Phencyclidine Negative; Serum Propoxyphene Negative; Serum THC (Cannabis) Negative
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
[2018-07-19] MEDS: ALPRAZolam 1 MG TAB PO PRN ×2 (17:17→22:47)
[2018-07-19] MEDS: PARoxetine 20 MG TAB PO SCH (22:47)
[2018-07-19] MEDS: ATORVASTATIN 40 MG TAB PO SCH (22:48)
[2018-07-20 04:35] VITALS: TEMP 97.8
[2018-07-20] MEDS: BENZTROPINE MESYLATE 1 MG TAB PO SCH (10:00)
[2018-07-20] MEDS: AMOXIC-POT CLAV 875-125MG 1 EACH TAB PO SCH ×2 (10:00→22:41)
[2018-07-20] MEDS: PANTOPRAZOLE 40 MG TABLET PO SCH (10:00)
[2018-07-20] MEDS: NICOTINE 21MG/24HR PATCH TRANSDERM SCH (10:00)
[2018-07-20] MEDS: VALPROIC ACID ORAL SOLN 250 MG/5 ML CUP PO SCH ×3 (10:01→22:42)
[2018-07-20] MEDS: HYDROCHLOROTHIAZIDE 12.5 MG CAP PO SCH (10:09)
--- NOTE | 2018-07-20 11:17 | P.PN ---
Progress Note - Text Interval history: The patient is found in his room he prefers not to leave his room to speak. He remains on one-to-one supervision was security. Staff report that the night was uneventful. He is demonstrated no aggressive behavior. He is required no injections. He states that he is interested meeting discharge. We discussed this at length. He is willing to reside at his father's home upon discharge. We reviewed his psychotropic medications as questions were answered. The patient does not want to attend inpatient chemical dependency treatment. Mental status exam: The patient is awake he is in bed he is dressed in his own clothing. Eye contact is appropriate speech is fluent spontaneous nonpressured. He reports his mood is fine he denies having any suicidal or homicidal ideation intent or plan. He endorses no auditory or visual hallucinations or any specific delusions. He does not demonstrate evidence of psychosis. He does not appear hypomanic or manic. Insight and judgment improving. He demonstrates no verbal or physical aggressiveness. Hygiene is adequate grooming is adequate. Plan: The patient is clinically stabilizing. We will draw a Depakote level tomorrow morning. We'll restart the Wellbutrin as he finds that helpful. Continue the Paxil as written. I anticipate discharging him tomorrow if c linically appropriate. He is encouraged to participate in the milieu. Social work will continue communicating with his mother.
[2018-07-20] MEDS: buPROPion SR 100 MG TABLET.ER PO SCH ×2 (12:27→22:41)
[2018-07-20] MEDS: ALPRAZolam 1 MG TAB PO PRN ×2 (13:55→22:42)
[2018-07-20] MEDS: BACITRACIN OINT 1 EACH PACKET TOPICAL SCH (22:18)
[2018-07-20] MEDS: PARoxetine 20 MG TAB PO SCH (22:42)
[2018-07-20] MEDS: ATORVASTATIN 40 MG TAB PO SCH (22:42)
[2018-07-20 22:53] VITALS: BP 130/62; PULSE 103
[2018-07-21] MEDS: BACITRACIN OINT 1 EACH PACKET TOPICAL SCH ×2 (08:57→13:42)
[2018-07-21] MEDS: VALPROIC ACID ORAL SOLN 250 MG/5 ML CUP PO SCH (08:57)
[2018-07-21] MEDS: NICOTINE 21MG/24HR PATCH TRANSDERM SCH (08:57)
[2018-07-21] MEDS: buPROPion SR 100 MG TABLET.ER PO SCH (08:58)
[2018-07-21] MEDS: AMOXIC-POT CLAV 875-125MG 1 EACH TAB PO SCH (08:58)
[2018-07-21] MEDS: PANTOPRAZOLE 40 MG TABLET PO SCH (08:58)
[2018-07-21] MEDS: ALPRAZolam 1 MG TAB PO PRN ×2 (08:59→14:36)
[2018-07-21] MEDS: HYDROCHLOROTHIAZIDE 12.5 MG CAP PO SCH (10:29)
[2018-07-21] MEDS ORDERED: NALTREXONE HCL 50 MG TAB PO SCH (11:00)
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
[2018-07-21] MEDS ORDERED: DIVALPROEX 500 MG TABLET.DR PO SCH (16:00)
== END 2018-07-21 15:40 | disposition home or self-care (01) | DRG 885 ==
LOC: EC 19:21 → 3MHU 07-16 05:51
PROVIDERS: ADMIT Psychiatry & Neurology Psychiatry; ATTEND Psychiatry & Neurology Psychiatry
DX: F30.2 Manic episode, severe with psychotic symptoms (principal); R45.851 Suicidal ideations; F43.10 Post-traumatic stress disorder, unspecified; E78.5 Hyperlipidemia, unspecified; I10 Essential (primary) hypertension; F41.9 Anxiety disorder, unspecified; F17.200 Nicotine dependence, unspecified, uncomplicated; H91.90 Unspecified hearing loss, unspecified ear; F19.10 Other psychoactive substance abuse, uncomplicated; L70.9 Acne, unspecified; L02.93 Carbuncle, unspecified; F60.2 Antisocial personality disorder; Z91.19 Patient's noncompliance with other medical treatment and regimen; Z22.322 Carrier or suspected carrier of Methicillin resistant Staphylococcus aureus; Z78.1 Physical restraint status; Z79.51 Long term (current) use of inhaled steroids; Z79.899 Other long term (current) drug therapy; Z88.8 Allergy status to other drugs, medicaments and biological substances
CPT/HCPCS: 80053; 80061; 80164; 80307; 82248; 83036; 84443; 85025; 99285

== ENCOUNTER 2018-07-25 11:22 | Inpatient (IN) | payer OTHER ==
--- NOTE | 2018-07-25 11:57 | ED ---
General Adult HPI - General Chief complaint: Psychiatric Symptoms Stated complaint: Mental Health Time Seen by Provider: 07/25/18 11:27 Source: patient, EMS, RN notes reviewed Mode of arrival: EMS Limitations: no limitations - History of Present Illness Initial comments: Patient is a pleasant 32-year-old male presenting to the emergency Department with depression and agitation. Patient admits to doing some drugs recently. Patient states he got some bad news but get him worked up. Patient has been in the hospital several times recently. Patient has requested benzodiazepines however normally will give them to him. Patient denies any suicidal ideation at this point. No homicidal thoughts. No hallucinations. No new physical complaints. - Related Data Home Medications Medication Instructions Recorded Confirmed Atorvastatin [Lipitor] 40 mg PO HS 07/15/18 07/25/18 Esomeprazole Magnesium [NexIUM] 40 mg PO DAILY 07/15/18 07/25/18 Previous Rx's Medication Instructions Recorded Amoxic-Pot Clav 875-125Mg 1 each PO Q12HR #6 tab 07/21/18 [Augmentin 875-125] Divalproex [Depakote] 500 mg PO TID #45 tablet. 07/21/18 Hydrochlorothiazide [Hydrodiuril] 12.5 mg PO DAILY #30 cap 07/21/18 Naltrexone HCl [Revia] 50 mg PO DAILY #30 tab 07/21/18 Nicotine 21Mg/24Hr Patch [Habitrol] 1 patch TRANSDERM DAILY #14 patch 07/21/18 PARoxetine [Paxil] 20 mg PO HS #30 tab 07/21/18 buPROPion HCL [Wellbutrin SR] 200 mg PO BID #60 tab.sr.12h 07/21/18 Allergies Allergy/AdvReac Type Severity Reaction Status Date / Time lorazepam [From Ativan] Allergy Severe Hallucinati Verified 07/25/18 11:37 ons melatonin Allergy Rash/Hives Verified 07/25/18 11:37 Review of Systems ROS Statement: Those systems with pertinent positive or pertinent negative responses have been documented in the HPI. ROS Other: All systems not noted in ROS Statement are negative. Constitutional: Denies: fever Eyes: Denies: eye pain ENT: Denies: ear pain Respiratory: Denies: cough Cardiovascular: Denies: chest pain Endocrine: Denies: fatigue Gastrointestinal: Denies: abdominal pain Genitourinary: Denies: dysuria Musculoskeletal: Denies: back pain Skin: Denies: rash Neurological: Denies: headache Past Medical History Past Medical History: Hyperlipidemia, Hypertension History of Any Multi-Drug Resistant Organisms: MRSA Additional Past Surgical History / Comment(s): lasix Past Psychological History: Anxiety, Depression, PTSD Smoking Status: Current every day smoker Past Alcohol Use History: None Reported Past Drug Use History: Methamphetamine General Exam Limitations: no limitations General appearance: alert, in no apparent distress Head exam: Present: atraumatic Eye exam: Present: normal appearance Neck exam: Present: normal inspection Respiratory exam: Present: normal lung sounds bilaterally Cardiovascular Exam: Present: tachycardia Extremities exam: Present: normal inspection Neurological exam: Present: alert Psychiatric exam: Present: normal affect, normal mood Skin exam: Present: normal color Course Vital Signs 07/25/18 11:30 Temperature 98 F Pulse Rate 117 H Respiratory 18 Rate Blood Pressure 130/81 O2 Sat by Pulse 100 Oximetry Medical Decision Making - Medical Decision Making Patient was seen by mental health services with plan for transfer to [facility] for rehab. - Lab Data Lab Results 07/25/18 Range/Units 12:09 Urine Opiates Screen Not Detected (NotDetected) Ur Oxycodone Screen Not Detected (NotDetected) Urine Methadone Screen Not Detected (NotDetected) Ur Propoxyphene Screen Not Detected (NotDetected) Ur Barbiturates Screen Not Detected (NotDetected) U Tricyclic Antidepress Not Detected (NotDetected) Ur Phencyclidine Scrn Not Detected (NotDetected) Ur Amphetamines Screen Detected H (NotDetected) U Methamphetamines Scrn Not Detected (NotDetected) U Benzodiazepines Scrn Detected H (NotDetected) Urine Cocaine Screen Not Detected (NotDetected) U Marijuana (THC) Screen Not Detected (NotDetected) Disposition Clinical Impression: Drug abuse, Depression Disposition: TRANSFER TO PSYCH HOSP/UNIT Is patient prescribed a controlled substance at d/c from ED?: No Referrals: Kristofer Irby DO [Primary Care Provider] - 1-2 days Time of Disposition: 13:28
[2018-07-25 12:24] LABS: Amphetamine Screen,Urine Detected (NotDetected); Barbiturate Screen,Urine Not Detected (NotDetected); Benzodiazepines Screen,Urine Detected (NotDetected); Cocaine Screen,Urine Not Detected (NotDetected); Methadone Screen, Urine Not Detected (NotDetected); Opiate Screen,Urine Not Detected (NotDetected); Oxycodone Screen, Urine Not Detected (NotDetected); Phencyclidine Screen,Urine Not Detected (NotDetected); Tricyclic Antidepressant,Urine Not Detected (NotDetected); Urn Cannabinoid Scrn Not Detected (NotDetected)
[2018-07-25] MEDS ORDERED: ALPRAZolam 1 MG TAB PO STA ×2 (13:23→15:06)
[2018-07-25] MEDS ORDERED: ZIPRASIDONE 20 MG VIAL IM STA ×2 (16:23→18:15)
[2018-07-25] MEDS ORDERED: DIAZEPAM 5 MG TAB PO STA (17:13)
--- NOTE | 2018-07-25 18:28 | ED ---
Medical Decision Making - Medical Decision Making Patient becoming combative. Patient is fighting with staff and trying to leave the hospital. - Lab Data Lab Results 07/25/18 Range/Units 12:09 Urine Opiates Screen Not Detected (NotDetected) Ur Oxycodone Screen Not Detected (NotDetected) Urine Methadone Screen Not Detected (NotDetected) Ur Propoxyphene Screen Not Detected (NotDetected) Ur Barbiturates Screen Not Detected (NotDetected) U Tricyclic Antidepress Not Detected (NotDetected) Ur Phencyclidine Scrn Not Detected (NotDetected) Ur Amphetamines Screen Detected H (NotDetected) U Methamphetamines Scrn Not Detected (NotDetected) U Benzodiazepines Scrn Detected H (NotDetected) Urine Cocaine Screen Not Detected (NotDetected) U Marijuana (THC) Screen Not Detected (NotDetected) Disposition Clinical Impression: Drug abuse, Depression Disposition: TRANSFER TO PSYCH HOSP/UNIT Is patient prescribed a controlled substance at d/c from ED?: No Procedures - Restraint - Face to Face Restraint Occurrence 1 Patient's Immediate Situation: Endangers self safety, Endangers others' safety, Endangers staff safety, Violent behavior Patient's Reaction to the Intervention: Uncooperative, Angry Patient's Medical & Behavioral Condition: Awake, Alert Need to Continue or Terminate Restraint or Seclusion: Continue Face to Face Eval of Restraint Date: 07/25/18 Face to Face Eval of Restraint Time: 18:27
[2018-07-25] MEDS ORDERED: MAG HYDROX/AL HYDROX/SIMETH 30 ML CUP PO PRN (20:39)
[2018-07-25] MEDS ORDERED: MAGNESIUM HYDROXIDE 2,400 MG/10 ML CUP PO PRN (20:39)
[2018-07-25] MEDS ORDERED: ACETAMINOPHEN TAB 325 MG TAB PO PRN (20:39)
--- NOTE | 2018-07-26 07:13 | P.MDCNMH ---
History of Present Illness H&P Date: 07/26/18 Chief Complaint: Medical evaluation 32-year-old male with history of PTSD and depression along with polysubstance abuse Emergency department department patient was not cooperative with aggressive behavior with staff members Patient presented the hospital claiming suicidal ideation however he is denying at this point. Patient is not very cooperative with exam he seems to be anxious and stressed. Is requesting to be released and asking for his psych medications to be resumed Patient at this point is not cooperating with the interview however he is denying any medical concerns at this point he denies any fevers chills chest pain coughing abdominal pain nausea vomiting or chest bleeding Review of Systems Pertinent positives as noted in HPI. All other systems were reviewed and are negative " Past Medical History Past Medical History: Hyperlipidemia, Hypertension History of Any Multi-Drug Resistant Organisms: MRSA Additional Past Surgical History / Comment(s): lasix Past Psychological History: Anxiety, Depression, PTSD Smoking Status: Current every day smoker Past Alcohol Use History: None Reported Past Drug Use History: Methamphetamine - Past Family History Family Family Medical History: No Reported History Medications and Allergies Home Medications Medication Instructions Recorded Confirmed Type Atorvastatin [Lipitor] 40 mg PO HS 07/15/18 07/25/18 History Esomeprazole Magnesium [NexIUM] 40 mg PO DAILY 07/15/18 07/25/18 History Amoxic-Pot Clav 875-125Mg 1 each PO Q12HR #6 tab 07/21/18 07/25/18 Rx [Augmentin 875-125] Divalproex [Depakote] 500 mg PO TID #45 tablet. 07/21/18 07/25/18 Rx Hydrochlorothiazide [Hydrodiuril] 12.5 mg PO DAILY #30 cap 07/21/18 07/25/18 Rx Naltrexone HCl [Revia] 50 mg PO DAILY #30 tab 07/21/18 07/25/18 Rx Nicotine 21Mg/24Hr Patch [Habitrol] 1 patch TRANSDERM DAILY #14 patch 07/21/18 07/25/18 Rx PARoxetine [Paxil] 20 mg PO HS #30 tab 07/21/18 07/25/18 Rx buPROPion HCL [Wellbutrin SR] 200 mg PO BID #60 tab.sr.12h 07/21/18 07/25/18 Rx Allergies Allergy/AdvReac Type Severity Reaction Status Date / Time lorazepam [From Ativan] Allergy Severe Hallucinati Verified 07/25/18 11:37 ons melatonin Allergy Rash/Hives Verified 07/25/18 11:37 Physical Exam Vitals: Vital Signs Temp Pulse Pulse Resp BP BP Pulse Ox 07/26/18 05:55 97.9 F 87 18 118/77 07/25/18 11:30 98 F 117 H 18 130/81 100 Constitutional: Patient looks anxious and distressed and requesting to leave the hospital Eyes: Anicteric sclerae, moist conjunctiva, Pupils equal round reactive to light ENMT: NC/AT Oropharynx clear, no erythema, or exudates Neck: Supple, FROM, no masses, or JVD No carotid bruits No thyromegaly Lungs: Clear to auscultation Clear to percussion Normal respiratory effort, no accessory muscle use Cardiovascular: Heart regular in rate and rhythm, No murmurs, gallops, or rubs No peripheral edema Abdominal: Soft Nontender, no guarding, rebound or rigidity Abdomen moving with respiration Normoactive bowel sounds No hepatomegaly, No splenomegaly No palpable mass No abdominal wall hernia noted Skin: Normal temperature, tone, texture, turgor No induration No subcutaneous nodules No rash, lesions No ulcers Extremities: No digital cyanosis No clubbing Pedal pulses intact and symmetrical Radial pulses intact and symmetrical No calf tenderness Psychiatric: Alert and oriented to person, place and time Patient is anxious and stressed Poor judgment Neuro Muscles Strength 5/5 in all 4 extremities Sensation to light touch grossly present throughout Cranial nerves II-XII grossly intact No focal sensory deficits Lymphatics: no palpable cervical or supraclavicular , or inguinal lymph nodes Cranial Nerve Examination - Cranial Nerves Cranial Nerve II- Optic: Intact Cranial Nerve III- Oculomotor: Intact Cranial Nerve IV- Trochlear: Intact Cranial Nerve V- Trigeminal: Intact Cranial Nerve - Abducens: Intact Cranial Nerve VII- Facial: Intact Cranial Nerve VIII- Auditory: Intact Cranial Nerve IX- Glossopharyngeal: Intact Cranial Nerve X- Vagus: Intact Cranial Nerve XI- Accessory: Intact Cranial Nerve XII- Hypoglossal: Intact Results CBC & Chem 7: 07/26/18 08:14 07/26/18 08:14 Labs: Abnormal Lab Results - Last 24 Hours (Table) 07/25/18 Range/Units 12:09 Ur Amphetamines Screen Detected H (NotDetected) U Benzodiazepines Scrn Detected H (NotDetected) Assessment and Plan Assessment: 32-year-old male with history of depression and anxiety and PTSD he admits to polysubstance abuse he came into the hospital was admitted to mental health unit due to suicidal ideation medicine consulted for medical management Plan: Depression PTSD Acute psychosis Polysubstance abuse Management per psych Patient low risk for DVT patient ambulatory Thank you for allowing us to participate in the care of this patient. We will follow peripherally. Do not hesitate to contact us with questions. Someone can be reached from the [facility] hospitalist group at all hours of the day at [phone].
[2018-07-26 08:51] LABS: ALT 24 U/L (21-72); AST 27 U/L (17-59); Albumin 4.7 g/dL (3.5-5.0); Alkaline Phosphatase 63 U/L (38-126); Anion Gap 9 mmol/L; Blood Urea Nitrogen 18 mg/dL (9-20); Calcium 10.3 mg/dL (8.4-10.2); Carbon Dioxide 27 mmol/L (22-30); Chloride 106 mmol/L (98-107); Cholesterol 168 mg/dL (<200); Glucose 110 mg/dL (74-99); HDL Cholesterol 37 mg/dL (40-60); LDL Cholesterol,Calculated 88 mg/dL (0-99); Potassium 4.4 mmol/L (3.5-5.1); Sodium 142 mmol/L (137-145); Total Bilirubin 0.7 mg/dL (0.2-1.3); Total Protein 7.9 g/dL (6.3-8.2); Triglycerides 216 mg/dL (<150)
[2018-07-26] MEDS: PANTOPRAZOLE 40 MG TABLET PO SCH (08:53)
[2018-07-26 09:05] LABS: Basophils % (A) 1 %; Eosinophils # (A) 0.1 k/uL (0-0.7); Eosinophils % (A) 2 %; HCT 44.8 % (39.0-53.0); HGB 15.6 gm/dL (13.0-17.5); Lymphocytes # (A) 1.4 k/uL (1.0-4.8); Lymphocytes % (A) 26 %; MCH 28.6 pg (25.0-35.0); MCHC 34.7 g/dL (31.0-37.0); MCV 82.3 fL (80.0-100.0); Mean Platelet Volume 6.8; Monocytes # (A) 0.6 k/uL (0-1.0); Monocytes % (A) 11 %; Neutrophils % (A) 57 %; Platelet Count 340 k/uL (150-450); RBC 5.44 m/uL (4.30-5.90); RDW 14.7 % (11.5-15.5); WBC 5.3 k/uL (3.8-10.6)
[2018-07-26] MEDS: ALPRAZolam 1 MG TAB PO PRN ×3 (10:02→20:37)
--- NOTE | 2018-07-26 11:23 | P.HP ---
Psychiatric H&P - . History & Physical: Allergies Allergy/AdvReac Type Severity Reaction Status Date / Time lorazepam [From Ativan] Allergy Severe Hallucinati Verified 07/25/18 11:37 ons melatonin Allergy Rash/Hives Verified 07/25/18 11:37 Vital Signs Temp 97.9 F 07/26/18 05:55 Pulse 87 07/26/18 05:55 Resp 18 07/26/18 05:55 BP 118/77 07/26/18 05:55 Pulse Ox 100 07/25/18 11:30 Intake & Output 07/25/18 07/26/18 07/26/18 18:59 06:59 18:59 Weight 90.718 kg Laboratory Last Values WBC 5.3 k/uL (3.8-10.6) 07/26/18 08:14 RBC 5.44 m/uL (4.30-5.90) 07/26/18 08:14 Hgb 15.6 gm/dL (13.0-17.5) 07/26/18 08:14 Hct 44.8 % (39.0-53.0) 07/26/18 08:14 MCV 82.3 fL (80.0-100.0) 07/26/18 08:14 MCH 28.6 pg (25.0-35.0) 07/26/18 08:14 MCHC 34.7 g/dL (31.0-37.0) 07/26/18 08:14 RDW 14.7 % (11.5-15.5) 07/26/18 08:14 Plt Count 340 k/uL (150-450) 07/26/18 08:14 Neutrophils % 57 % 07/26/18 08:14 Lymphocytes % 26 % 07/26/18 08:14 Monocytes % 11 % 07/26/18 08:14 Eosinophils % 2 % 07/26/18 08:14 Basophils % 1 % 07/26/18 08:14 Neutrophils # 3.0 k/uL (1.3-7.7) 07/26/18 08:14 Lymphocytes # 1.4 k/uL (1.0-4.8) 07/26/18 08:14 Monocytes # 0.6 k/uL (0-1.0) 07/26/18 08:14 Eosinophils # 0.1 k/uL (0-0.7) 07/26/18 08:14 Basophils # 0.0 k/uL (0-0.2) 07/26/18 08:14 Sodium 142 mmol/L (137-145) 07/26/18 08:14 Potassium 4.4 mmol/L (3.5-5.1) 07/26/18 08:14 Chloride 106 mmol/L (98-107) 07/26/18 08:14 Carbon Dioxide 27 mmol/L (22-30) 07/26/18 08:14 Anion Gap 9 mmol/L 07/26/18 08:14 BUN 18 mg/dL (9-20) 07/26/18 08:14 Creatinine 1.11 mg/dL (0.66-1.25) 07/26/18 08:14 Est GFR (CKD-EPI)AfAm >90 (>60 ml/min/1.73 sqM) 07/26/18 08:14 Est GFR (CKD-EPI)NonAf 87 (>60 ml/min/1.73 sqM) 07/26/18 08:14 Glucose 110 mg/dL (74-99) H 07/26/18 08:14 Calcium 10.3 mg/dL (8.4-10.2) H 07/26/18 08:14 Total Bilirubin 0.7 mg/dL (0.2-1.3) 07/26/18 08:14 AST 27 U/L (17-59) 07/26/18 08:14 ALT 24 U/L (21-72) 07/26/18 08:14 Alkaline Phosphatase 63 U/L (38-126) 07/26/18 08:14 Total Protein 7.9 g/dL (6.3-8.2) 07/26/18 08:14 Albumin 4.7 g/dL (3.5-5.0) 07/26/18 08:14 Triglycerides 216 mg/dL (<150) H 07/26/18 08:14 Cholesterol 168 mg/dL (<200) 07/26/18 08:14 LDL Cholesterol, Calc 88 mg/dL (0-99) 07/26/18 08:14 HDL Cholesterol 37 mg/dL (40-60) L 07/26/18 08:14 TSH 1.140 mIU/L (0.465-4.680) 07/26/18 08:14 Urine Opiates Screen Not Detected (NotDetected) 07/25/18 12:09 Ur Oxycodone Screen Not Detected (NotDetected) 07/25/18 12:09 Urine Methadone Screen Not Detected (NotDetected) 07/25/18 12:09 Ur Propoxyphene Screen Not Detected (NotDetected) 07/25/18 12:09 Ur Barbiturates Screen Not Detected (NotDetected) 07/25/18 12:09 U Tricyclic Antidepress Not Detected (NotDetected) 07/25/18 12:09 Ur Phencyclidine Scrn Not Detected (NotDetected) 07/25/18 12:09 Ur Amphetamines Screen Detected (NotDetected) H 07/25/18 12:09 U Methamphetamines Scrn Not Detected (NotDetected) 07/25/18 12:09 U Benzodiazepines Scrn Detected (NotDetected) H 07/25/18 12:09 Urine Cocaine Screen Not Detected (NotDetected) 07/25/18 12:09 U Marijuana (THC) Screen Not Detected (NotDetected) 07/25/18 12:09 07/26/18 11:13 IDENTIFYING DATA: This patient is a 32-year-old single male who was admitted to the mental health unit as he called 911 reporting suicidal ideation. HPI: The patient was admitted to the mental health unit after he called 911 stating his suicidal thoughts. The report from the emergency psychiatric nurse indicates he was having suicidal ideation but did not discuss a plan. He felt he needed hospitalization to remain safe. He had indicated that he had used methamphetamine to cope with his feelings. The patient is known to the service as he was just recently discharged last week. He is on a substance use court order a court order for mental health and I believe he is involved in mental health court. The patient is very difficult to interview this morning. He is demanding to be discharged. He accuses me of holding him here without facts. He denies he ever made any suicidal statements. He indicates that he is a functioning addict and he has no intention of discontinuing methamphetamine use at this time. He does have an existing diagnosis of post traumatic stress disorder related to his service. The session was terminated due to his lack of cooperation. PAST PSYCHIATRIC HISTORY: He has had more than 7 inpatient psychiatric admissions now. No reported suicide attempts. He was discharged on Depakote 500 mg 3 times daily 50 mg daily paxil 20 mg at bedtime and Wellbutrin SR 200 mg twice daily. He had previously been treated with Cymbalta Strattera Seroquel and Catapres trazodone and possibly other medications he is unable to describe. He was supposed to start working with [facility] but has not yet attended his intake appointment. PMH: None reported he previously reported hearing loss from service ALLERGIES: Ativan, melatonin MEDICATIONS: As above CHEMICAL DEPENDENCY HISTORY: The patient continues to intermittently use methamphetamine he also had benzodiazepines in his urine drug screen. No further history was provided FAMILY PSYCHIATRIC HISTORY: Unknown FAMILY CHEMICAL DEPENDENCY HISTORY: Unknown SOCIAL HISTORY: The patient is 32 years old he is homeless at this time. His mother is his legal guardian. He has no steady employment. He reports having 3 children but does not have custody of any of them. He states that he had a girlfriend of 10 days but now they're broken up. He does have a high school education and took some college classes afterwards. He is 11 years of service specifically [employer]. He reports that he was honorably discharged. Legal history is unknown as a possible weapons charge. Abuse history unknown. MENTAL STATUS EXAM: The patient is a male appearing his stated age he presents with adequate hygiene grooming. He is dressed in shorts and T-shirt. He has visible tattoos on both upper extremities. The patient's is very animated he is irritable. He has great difficulty remaining calmly seated in the chair. He indicates his mood is irritated and pissed off. He frequently uses profanity demonstrating his frustration. He reports no suicidal or homicidal ideation intent or plan. He is reporting no auditory or visual hallucinations or any specific delusions. Obviously the patient is trying to facilitate a discharge he may be underreporting symptoms. He demonstrated no verbal or physical aggressiveness. He demonstrates no repetitive involuntary movements. He did not participate in any cognitive questions and he left the room out of anger yelling. STRENGTHS/WEAKNESSES: He has a guardianship and he is under court orders, weaknesses: Ongoing substance use INTELLECTUAL FUNCTIONING: Average IMPRESSIONS: [] 1. Depression unspecified, posttraumatic stress disorder, methamphetamine and opiate use disorders PLAN: The patient has been admitted to the mental health unit on an existing treatment order. We will reinitiate the Depakote 500 mg 3 times daily naltrexone 50 mg daily Paxil 20 mg at bedtime. He will be seen by internal medicine for routine history and physical exam. We will monitor him for safety and encourage full participation in the milieu. His mother will be involved in treatment and discharge planning. He expresses no interest in attending inpatient chemical dependency treatment.
[2018-07-26] MEDS: NICOTINE 21MG/24HR PATCH TRANSDERM SCH (13:49)
[2018-07-26] MEDS: HYDROCHLOROTHIAZIDE 12.5 MG CAP PO SCH (13:49)
[2018-07-26] MEDS: AMOXIC-POT CLAV 875-125MG 1 EACH TAB PO SCH ×2 (13:49→20:36)
[2018-07-26] MEDS: buPROPion SR 100 MG TABLET.ER PO SCH ×2 (13:50→20:36)
[2018-07-26] MEDS: NALTREXONE HCL 50 MG TAB PO SCH (13:50)
[2018-07-26 14:11] VITALS: BMI 27.1
[2018-07-26] MEDS ORDERED: ZIPRASIDONE 20 MG VIAL IM ONE (14:21)
[2018-07-26] MEDS: ZIPRASIDONE 20 MG VIAL IM PRN (14:37)
[2018-07-26] MEDS: DIVALPROEX 500 MG TABLET.DR PO SCH ×2 (18:16→20:37)
[2018-07-26 19:43] LABS: Hemoglobin A1C 5.1 % (4.0-6.0)
[2018-07-26] MEDS: PARoxetine 20 MG TAB PO SCH (20:36)
[2018-07-27 00:09] VITALS: RESP 16
[2018-07-27] MEDS ORDERED: diphenhydrAMINE 25 MG CAP PO ONE (01:11)
[2018-07-27] MEDS: ZIPRASIDONE 20 MG VIAL IM PRN (02:00)
[2018-07-27] MEDS: AMOXIC-POT CLAV 875-125MG 1 EACH TAB PO SCH ×2 (09:28→21:20)
[2018-07-27] MEDS: DIVALPROEX 500 MG TABLET.DR PO SCH ×3 (09:28→21:21)
[2018-07-27] MEDS: PANTOPRAZOLE 40 MG TABLET PO SCH (09:28)
[2018-07-27] MEDS: NALTREXONE HCL 50 MG TAB PO SCH (09:28)
[2018-07-27] MEDS: buPROPion SR 100 MG TABLET.ER PO SCH ×2 (09:28→21:21)
[2018-07-27] MEDS: HYDROCHLOROTHIAZIDE 12.5 MG CAP PO SCH (09:28)
[2018-07-27] MEDS: NICOTINE 21MG/24HR PATCH TRANSDERM SCH (09:28)
--- NOTE | 2018-07-27 11:27 | P.PN ---
Progress Note - Text Interval history: The patient is found in his room he is awake lying in bed. He reports his mood is fine. He remains focused on when he will be discharged. He states "I'm just wasting away here if you hold me longer". He was under the impression he had a family meeting arrange for this morning but that did not occur. We discussed that we are open to having his mother participate in a family meeting. He has no questions regarding his psychotropic medication. He feels that he is not getting enough food despite no portions and a supplement with meals. Mental status exam: The patient is alert he is lying in bed eye contact is appropriate. He remains focused on when he is being discharged. He is reporting no suicidal or homicidal ideation intent or plan. He is endorsing no auditory or visual hallucinations or specific delusions. He is somewhat argumentative but is much calmer than yesterday. Insight and judgment limited. He continues to underappreciate the effects of methamphetamine on his mental health. He demonstrates no tangential thinking loose associations or flight of ideas. He demonstrates no verbal or physical aggressiveness. Plan: The patient will continue his current psychotropic medications. During this interaction he appears calmer than yesterday. I do believe that his presentation to the hospital was significantly confounded by his methamphetamine use. We will monitor him for safety. We encourage appropriate participation in groups. Social work will remain in contact with the patient's mother who is his guardian. We discussed the patient's outpatient care with the community mental health liaison. Vital signs reviewed.
[2018-07-27] MEDS: ALPRAZolam 1 MG TAB PO PRN (12:07)
[2018-07-27] MEDS: PARoxetine 20 MG TAB PO SCH (21:20)
[2018-07-28 06:42] VITALS: TEMP 98
[2018-07-28] MEDS: NICOTINE 21MG/24HR PATCH TRANSDERM SCH (08:14)
[2018-07-28] MEDS: DIVALPROEX 500 MG TABLET.DR PO SCH ×3 (08:15→23:35)
[2018-07-28] MEDS: buPROPion SR 100 MG TABLET.ER PO SCH ×2 (08:15→23:36)
[2018-07-28] MEDS: NALTREXONE HCL 50 MG TAB PO SCH (08:15)
[2018-07-28] MEDS: ALPRAZolam 1 MG TAB PO PRN ×2 (08:15→23:36)
[2018-07-28] MEDS: AMOXIC-POT CLAV 875-125MG 1 EACH TAB PO SCH ×2 (08:15→23:36)
[2018-07-28] MEDS: PANTOPRAZOLE 40 MG TABLET PO SCH (08:15)
[2018-07-28] MEDS: HYDROCHLOROTHIAZIDE 12.5 MG CAP PO SCH (08:15)
[2018-07-28 08:59] VITALS: BP 125/71; PULSE 70
--- NOTE | 2018-07-28 10:55 | P.PN ---
Progress Note - Text Interval history: The patient is found in his room he is lying in bed awake. He indicates his mood is fine. He is aware that there is a support meeting scheduled this morning that will involve his mother. He is insisting he be discharged after the meeting. He has no questions or concerns regarding his psychotropic medications. He indicates that he slept at night he is eating and showered. Staff report that he is attending to his activities of daily living but not attending groups. Mental status exam: The patient is alert he is lying in bed he has intermittent eye contact speech is fluent spontaneous nonpressured. He indicates his mood is fine. Affect is constricted he is reporting no suicidal or homicidal ideation intent or plan. He is endorsing no auditory or visual hallucinations or any specific delusions. There is no observed evidence of psychosis. He demonstrates no tangential thinking loose associations or flight of ideas. Insight and judgment improving. He demonstrates no verbal or physical aggressiveness. He continues to lack insight into his substance use. He does not wish to participate in inpatient chemical dependency treatment. He is asking to be discharged. Plan: The patient will continue on his current psychotropic medications. He has been able to control his behavior over the last 24 hours. He is participating in his activities of daily living. Due to personality disorder traits he is refusing to attend groups. We will await the outcome of the support meeting. Vital signs reviewed.
[2018-07-28] MEDS: PARoxetine 20 MG TAB PO SCH (23:36)
[2018-07-29] MEDS: DIVALPROEX 500 MG TABLET.DR PO SCH (09:05)
[2018-07-29] MEDS: buPROPion SR 100 MG TABLET.ER PO SCH (09:05)
[2018-07-29] MEDS: NALTREXONE HCL 50 MG TAB PO SCH (09:05)
[2018-07-29] MEDS: AMOXIC-POT CLAV 875-125MG 1 EACH TAB PO SCH (09:05)
[2018-07-29] MEDS: HYDROCHLOROTHIAZIDE 12.5 MG CAP PO SCH (09:05)
[2018-07-29] MEDS: PANTOPRAZOLE 40 MG TABLET PO SCH (09:05)
[2018-07-29] MEDS: NICOTINE 21MG/24HR PATCH TRANSDERM SCH (09:14)
--- NOTE | 2018-07-29 09:24 | P.DS ---
Providers Date of admission: 07/25/18 18:04 Expected date of discharge: 07/29/18 Attending physician: Marvin Ovalle Consults: 07/25/18 20:39 Consult Physician Routine Consulting Provider: Ewa Yu Consult Reason/Comments: medical management Do you want consulting provider notified?: Yes Primary care physician: Kristofer Irby, DO - Discharge Diagnosis(es) (1) Depression Current Visit: Yes Status: Acute Priority: High (2) Methamphetamine use disorder, moderate Current Visit: No Status: Acute Priority: High (3) Opioid use disorder Current Visit: No Status: Acute Priority: High (4) PTSD (post-traumatic stress disorder) Current Visit: No Status: Acute Priority: Medium Hospital Course: Brief summary of admission note: This patient is a 32-year-old single male who is admitted to the mental health unit as he called 911 reporting suicidal ideation. The patient was just discharged from this mental health unit last week. He is known to have a diagnosis of post manic stress disorder depression unspecified methamphetamine and opioid use disorders. Rule out benzodiazepine use disorder. After being discharged he relapsed with use of methamphetamine and benzodiazepines. Summary of hospital course: The patient was admitted to the mental health unit on an existing treatment order. Upon meeting with him on 07/26/2018 he denied having any suicidal thoughts he denied ever making any suicidal statements. He was upset and agitated that he was admitted to the mental health unit. He continued to demonstrate oppositional behavior. The patient was restarted on his psychotropic medications including Paxil Depakote naltrexone and Wellbutrin SR. When necessary medication was used to calm his agitation. He required no use of restraint on the mental health unit and did not require one-to-one supervision during this hospitalization. The patient did demonstrate improvement over the course of the hospitalization. He became less agitated he was participating in his activities of daily living such as eating showering. He did participate in a support meeting yesterday involving social work myself and his mother. The patient is on an order for mental health treatment as well as for substance use. His clinicians agree he would benefit from residential treatment for chemical dependency reasons but he refuses to participate in that level of care voluntarily. He does have a court hearing Thursday scheduled due to his noncompliance with the court orders. Over the past 2 days the patient has refused to attend groups but his behavior has been much improved. Mental status exam: The patient is alert he is lying in bed hygiene grooming adequate. Eye contact is intermittent. He reports his mood is fine. He denies having any suicidal or homicidal ideation intent or plan. He is reporting no auditory or visual hallucinations or any specific delusions. There is no observed evidence of psychosis. He does not appear hypomanic or manic. Insight and judgment grossly intact but definitely limited in terms of his substance use. He demonstrates no verbal or physical aggressiveness during our session he demonstrates no involuntary repetitive movements. He is oriented to person place and date. He spontaneously describes future oriented thinking. Impressions 1. Depression unspecified, posttraumatic stress disorder, methamphetamine opioid and benzodiazepine use disorders Plan: The patient's will be discharged mental health unit today. He plans on temporarily residing with his girlfriend and his mother is agreeable to that placement. The patient will participate in an intake session with [facility] here on the mental health unit today. The patient has court scheduled tomorrow morning due to his noncompliance. He will continue on Depakote 500 mg 3 times a day, naltrexone 50 mg daily, Paxil 20 mg at bedtime, Wellbutrin SR 200 mg twice daily. He is instructed to abstain from any use of alcohol marijuana benzodiazepines or any illicit drugs. We discussed that the substances can provoke mood symptoms and elevate his safety risk. He refuses to participate in inpatient chemical dependency treatment at this time. There is no imminent safety risk and is appropriate for transition outpatient care. Patient Condition at Discharge: Stable Plan - Discharge Summary New Discharge Prescriptions: New Amoxic-Pot Clav 875-125Mg [Augmentin 875-125] 1 each PO Q12HR #6 tab Nicotine 21Mg/24Hr Patch [Habitrol] 1 patch TRANSDERM DAILY #14 patch Continue Esomeprazole Magnesium [NexIUM] 40 mg PO DAILY Atorvastatin [Lipitor] 40 mg PO HS Hydrochlorothiazide [Hydrodiuril] 12.5 mg PO DAILY #30 cap Divalproex [Depakote] 500 mg PO TID #45 tablet. PARoxetine [Paxil] 20 mg PO HS #30 tab Naltrexone HCl [Revia] 50 mg PO DAILY #30 tab buPROPion HCL [Wellbutrin SR] 200 mg PO BID #60 tab.sr.12h No Action Amoxic-Pot Clav 875-125Mg [Augmentin 875-125] 1 each PO Q12HR #6 tab Nicotine 21Mg/24Hr Patch [Habitrol] 1 patch TRANSDERM DAILY #14 patch Discharge Medication List Atorvastatin [Lipitor] 40 mg PO HS 07/15/18 [History] Esomeprazole Magnesium [NexIUM] 40 mg PO DAILY 07/15/18 [History] Amoxic-Pot Clav 875-125Mg [Augmentin 875-125] 1 each PO Q12HR #6 tab 07/21/18 [Rx] Hydrochlorothiazide [Hydrodiuril] 12.5 mg PO DAILY #30 cap 07/21/18 [Rx] Nicotine 21Mg/24Hr Patch [Habitrol] 1 patch TRANSDERM DAILY #14 patch 07/21/18 [Rx] Amoxic-Pot Clav 875-125Mg [Augmentin 875-125] 1 each PO Q12HR #6 tab 07/29/18 [Rx] Divalproex [Depakote] 500 mg PO TID #45 tablet. 07/29/18 [Rx] Naltrexone HCl [Revia] 50 mg PO DAILY #30 tab 07/29/18 [Rx] Nicotine 21Mg/24Hr Patch [Habitrol] 1 patch TRANSDERM DAILY #14 patch 07/29/18 [Rx] PARoxetine [Paxil] 20 mg PO HS #30 tab 07/29/18 [Rx] buPROPion HCL [Wellbutrin SR] 200 mg PO BID #60 tab.sr.12h 07/29/18 [Rx] Follow up Appointment(s)/Referral(s): Kristofer Irby DO [Primary Care Provider] - 1-2 days Patient Instructions/Handouts: How to Stop Smoking (DC), Depression (DC), Post Traumatic Stress Disorder (DC), Suicide Prevention (DC) Activity/Diet/Wound Care/Special Instructions: Activity and diet as tolerated. No guns or weapons in the home. Take all medications as prescribed and attend all follow up appointments as scheduled. Refrain from alcohol and street drugs not prescribed by your physician. If in need of of medication refills, please go to your primary care physician or to your outpatient psychiatric provider. If in crisis please call .
== END 2018-07-29 13:08 | disposition home or self-care (01) | DRG 881 ==
LOC: EC 11:22 → 3MHU 18:04
PROVIDERS: ADMIT Psychiatry & Neurology Psychiatry; ATTEND Psychiatry & Neurology Psychiatry
DX: F32.9 Major depressive disorder, single episode, unspecified (principal); R45.851 Suicidal ideations; E78.5 Hyperlipidemia, unspecified; F11.10 Opioid abuse, uncomplicated; F15.10 Other stimulant abuse, uncomplicated; F13.10 Sedative, hypnotic or anxiolytic abuse, uncomplicated; F17.210 Nicotine dependence, cigarettes, uncomplicated; F43.10 Post-traumatic stress disorder, unspecified; H91.90 Unspecified hearing loss, unspecified ear; I10 Essential (primary) hypertension; Z59.0 Homelessness; Z79.899 Other long term (current) drug therapy; Z91.19 Patient's noncompliance with other medical treatment and regimen; Z88.8 Allergy status to other drugs, medicaments and biological substances; Z65.3 Problems related to other legal circumstances
CPT/HCPCS: 80053; 80061; 80306; 83036; 84443; 85025; 96372; 99285